=== PATIENT | female | born 1980 | race Caucasian/White ===

== ENCOUNTER → 2016-10-10 | Outpatient (CLI) | payer OTHER ==
[~2016-10-10] MED LIST: BACTRIM DS 8001 TA1 PO; CLARITIN10 MG PO; COUMADIN2 M1 PO; COUMADIN2.5 M1 PO; COUMADIN3 MG PO; FLEXERIL5 MG PO; FLONASE ALLERG9.9 ML NAS; Fioricet 325 MG1 TAB PO; LOVENOX EASYINJ1 DEV; MACROBID100 M1 PO; MOTRIN600 MG PO; MOTRIN800 MG PO; NKHM; PEN-VEE K500 MG PO; PHENERGAN25 MG RC; PLAVIX75 MG PO; PREDNISONE10 MG PO; PREDNISONE20 MG PO; PROTONIX40 MG PO; PYRIDIUM200 M1 PO; ROBITUSSIN DM 105 ML PO; TRAMADOL; VICODIN 5/500 505 MG PO; ZITHROMAX Z PA250 MG PO
[2016-10-10 12:16] LABS: BASO # 0.2 10*3/uL (0.0-0.1); EOS # 0.5 10*3/uL (0.0-0.4); EOS % 6.4 % (1.0-4.0); HEMATOCRIT 41.5 % (37.0-47.0); HEMOGLOBIN 13.8 g/dl (12.0-16.0); LYMPH # 2.2 10*3/uL (1.3-4.4); LYMPH % 30.1 % (27.0-41.0); MEAN CELL VOLUME 85.9 fl (81.0-99.0); MEAN CORPUSCULAR HGB 28.6 pg (27.0-31.0); MEAN CORPUSCULAR HGB CONC 33.3 g/dl (33.0-37.0); MEAN PLATELET VOLUME 10.9 fl (9.6-12.3); MONO # 0.5 10*3/uL (0.1-1.0); MONO % 6.2 % (3.0-9.0); NEUT # 4.1 10*3/uL (2.3-7.9); PLATELET COUNT AUTOMATED 286 10*3/uL (130-400); RED BLOOD COUNT 4.83 10*6/uL (4.10-5.10); RED CELL DISTRI WIDTH 13.7 % (0-14.5); WHITE BLOOD COUNT 7.4 10*3/uL (4.8-10.8)
[2016-10-10 12:42] LABS: ALBUMIN 3.3 gm/dl (3.1-4.5); ALKALINE PHOSPHATASE 69 U/L (45-117); BILIRUBIN, TOTAL 0.2 mg/dl (0.2-1.0); BUN 8 mg/dl (7-24); CARBON DIOXIDE 26 mmol/L (21-32); CHLORIDE 108 mmol/L (98-107); CHOLESTEROL 161 mg/dL (<200); EST GLOM FILT AFRICAN AMERICAN > 60 ml/min; GLUCOSE 84 mg/dL (65-99); HDL CHOLESTEROL 41 mg/dl (40-60); LDL CHOLESTEROL 96 mg/dL (9-159); POTASSIUM 4.2 mmol/L (3.5-5.1); SGOT/AST 12 IU/L (3-35); SGPT/ALT 18 U/L (12-78); SODIUM 140 mmol/L (136-145); TOTAL PROTEIN 6.6 gm/dL (6.4-8.2); TRIGLYCERIDES 121 mg/dl (<150); VLDL CHOLESTEROL 24 mg/dL (6-40)
== END | disposition home or self-care (01) ==
LOC: LAB 11:23
PROVIDERS: Nurse Practitioner Family
DX: R00.2 Palpitations (principal); D68.8 Other specified coagulation defects; R79.9 Abnormal finding of blood chemistry, unspecified

== ENCOUNTER 2017-02-17 15:33 | Emergency (ER) | payer OTHER ==
[~2017-02-17] VITALS: Ht 170.1 cm; Wt 72.6 kg
[2017-02-17 15:38] VITALS: BP 112/74
[2017-02-17] MEDS ORDERED: NAPROSYN500 MG PO (16:57)
== END 2017-02-17 17:03 | disposition home or self-care (01) ==
LOC: ED 15:33
DX: S40.022A Contusion of left upper arm, initial encounter (principal); K21.9 Gastro-esophageal reflux disease without esophagitis; F17.200 Nicotine dependence, unspecified, uncomplicated; Z88.5 Allergy status to narcotic agent; Z79.899 Other long term (current) drug therapy; Z88.8 Allergy status to other drugs, medicaments and biological substances; W19.XXXA Unspecified fall, initial encounter; Y93.89 Activity, other specified; Y92.89 Other specified places as the place of occurrence of the external cause; Y99.8 Other external cause status

== ENCOUNTER → 2017-09-08 | Outpatient (CLI) | payer OTHER ==
[~2017-09-08] MED LIST changes: +NAPROSYN500 MG PO
== END | disposition home or self-care (01) ==
LOC: US 14:28
DX: N93.9 Abnormal uterine and vaginal bleeding, unspecified (principal); R10.2 Pelvic and perineal pain

== ENCOUNTER 2018-01-31 16:03 | Emergency (ER) | payer OTHER ==
[~2018-01-31] VITALS: Ht 170.1 cm; Wt 68.0 kg
--- NOTE | ~2018-01-31 | EKG ---
[place], [place] ELECTROCARDIOGRAM REPORT NAME: DOLORES PELLETIER UNIT #: [id number] ROOM: DOCTOR: DAWNA DRAFT REPORT BIRTHDATE: [birth year] [facility] Test Date: 2018-01-31 Test Time: 17:04:14 Pat Name: DOLORES PELLETIER Department: Room: Gender: F Set Up Technician: SS RESP : 1980 Requested By: DOLORES FREY PA-C Order Number: [id number] Reading MD: Bernardino Watson MD Measurements Intervals [place] Rate: 92 P: 40 TX: 143 QRS: 63 QRSD: 88 T: 48 QT: 358 QTc: 443 Interpretive Statements Sinus rhythm No previous ECG available for comparison Electronically Signed On 02-01-2018 11:48:17 PST by Bernardino Watson MD CM:EKGRPT:ELECTROCARDIOGRAM REPORT [id number] DOLORES FREY PA-C EPIPHANY DRAFT REPORT DOLORES FREY PA-C
[2018-01-31 17:09] LABS: BASO # 0.2 10*3/uL (0.0-0.1); BASO % 1.4 % (0.0-1.0); EOS # 0.7 10*3/uL (0.0-0.4); EOS % 5.7 % (1.0-4.0); HEMATOCRIT 41.5 % (37.0-47.0); HEMOGLOBIN 13.2 g/dl (12.0-16.0); LYMPH # 2.7 10*3/uL (1.3-4.4); LYMPH % 22.4 % (27.0-41.0); MEAN CELL VOLUME 81.5 fl (81.0-99.0); MEAN CORPUSCULAR HGB 25.9 pg (27.0-31.0); MEAN CORPUSCULAR HGB CONC 31.8 g/dl (33.0-37.0); MONO % 7.9 % (3.0-9.0); NEUT # 7.5 10*3/uL (2.3-7.9); NEUT % 62.2 % (47.0-73.0); PLATELET COUNT AUTOMATED 329 10*3/uL (130-400); RED BLOOD COUNT 5.09 10*6/uL (4.10-5.10); RED CELL DISTRI WIDTH 16.1 % (0-14.5)
[2018-01-31 17:16] LABS: BILIRUBIN NEGATIVE (NEGATIVE); BLOOD 2+ (NEGATIVE); CLARITY SL CLOUDY (CLEAR); COLOR YELLOW (YELLOW); GLUCOSE NEGATIVE (NEGATIVE); KETONE NEGATIVE (NEGATIVE); LEUKO ESTERASE NEGATIVE (NEGATIVE); NITRITE NEGATIVE (NEGATIVE); SPECIFIC GRAVITY 1.025 (1.005-1.030); UROBILINOGEN 0.2 E.U./dl (0.2-1.0)
[2018-01-31 17:26] LABS: EPITHELIAL CELLS 16-20; WBC 0-2 wbc/hpf (0-5)
[2018-01-31 17:28] LABS: ACT PARTIAL THROMBO TIME 21.1 SECONDS (20.8-31.5); ALBUMIN 3.7 gm/dl (3.1-4.5); ALKALINE PHOSPHATASE 77 U/L (45-117); BUN 9 mg/dl (7-24); CHLORIDE 105 mmol/L (98-107); CREATININE 0.96 mg/dL (0.55-1.02); POTASSIUM 3.1 mmol/L (3.5-5.1); SGOT/AST 18 IU/L (3-35); SGPT/ALT 20 U/L (12-78); SODIUM 140 mmol/L (136-145); TOTAL PROTEIN 7.7 gm/dL (6.4-8.2)
[2018-01-31 17:29] LABS: TROPONIN I < 0.015 ng/ml (<0.045)
[2018-01-31] MEDS ORDERED: PREDNISONE10 MG PO (20:36)
[2018-01-31] MEDS ORDERED: TESSALON PERLE100 M1 PO (20:36)
[2018-01-31] MEDS ORDERED: HYCODAN/HYDROMET5 ML PO (20:36)
[2018-01-31] MEDS ORDERED: PROAIR HFA8.5 GM INH (20:36)
[2018-01-31 20:37] VITALS: BP 112/53
== END 2018-01-31 20:40 | disposition home or self-care (01) ==
LOC: ED 16:03
PROVIDERS: Physician Assistant
DX: B34.9 Viral infection, unspecified (principal); F17.200 Nicotine dependence, unspecified, uncomplicated; Z98.51 Tubal ligation status; Z98.890 Other specified postprocedural states; Z88.6 Allergy status to analgesic agent; Z88.5 Allergy status to narcotic agent; Z86.718 Personal history of other venous thrombosis and embolism; Z86.711 Personal history of pulmonary embolism

== ENCOUNTER 2018-07-23 14:56 | Emergency (ER) | payer OTHER ==
[~2018-07-23] VITALS: Ht 170.1 cm; Wt 63.5 kg
[~2018-07-23 14:56] MED LIST changes: +HYCODAN/HYDROMET5 ML PO; +PROAIR HFA8.5 GM INH; +TESSALON PERLE100 M1 PO
[2018-07-23 14:58] VITALS: BP 132/80
[2018-07-23 15:54] LABS: BASO # 0.2 10*3/uL (0.0-0.1); BASO % 1.8 % (0.0-1.0); EOS # 0.8 10*3/uL (0.0-0.4); HEMATOCRIT 45.5 % (37.0-47.0); HEMOGLOBIN 14.7 g/dl (12.0-16.0); LYMPH # 2.7 10*3/uL (1.3-4.4); LYMPH % 30.6 % (27.0-41.0); MEAN CELL VOLUME 86.5 fl (81.0-99.0); MEAN CORPUSCULAR HGB 27.9 pg (27.0-31.0); MEAN CORPUSCULAR HGB CONC 32.3 g/dl (33.0-37.0); MEAN PLATELET VOLUME 10.8 fl (9.6-12.3); MONO # 0.8 10*3/uL (0.1-1.0); NEUT # 4.4 10*3/uL (2.3-7.9); NEUT % 49.3 % (47.0-73.0); PLATELET COUNT AUTOMATED 285 10*3/uL (130-400); RED BLOOD COUNT 5.26 10*6/uL (4.10-5.10); RED CELL DISTRI WIDTH 13.7 % (0-14.5); WHITE BLOOD COUNT 8.9 10*3/uL (4.8-10.8)
[2018-07-23 16:09] LABS: ALBUMIN 3.8 gm/dl (3.1-4.5); ALKALINE PHOSPHATASE 75 U/L (45-117); BUN 13 mg/dl (7-24); CHLORIDE 106 mmol/L (98-107); CREATININE 0.96 mg/dL (0.55-1.02); LIPASE 87 U/L (73-393); POTASSIUM 3.6 mmol/L (3.5-5.1); SGOT/AST 13 IU/L (3-35); SGPT/ALT 22 U/L (12-78); SODIUM 139 mmol/L (136-145); TOTAL PROTEIN 7.4 gm/dL (6.4-8.2)
[2018-07-23] MEDS ORDERED: ZOFRAN4 MG PO (18:10)
== END 2018-07-23 18:13 | disposition home or self-care (01) ==
LOC: ED 14:56
PROVIDERS: Nurse Practitioner Family
DX: B27.90 Infectious mononucleosis, unspecified without complication (principal); K21.9 Gastro-esophageal reflux disease without esophagitis; Z88.6 Allergy status to analgesic agent; Z79.899 Other long term (current) drug therapy

== ENCOUNTER 2019-01-31 06:57 | Emergency (ER) | payer BC ==
[~2019-01-31] VITALS: Ht 170.1 cm; Wt 73.5 kg
[~2019-01-31 06:57] MED LIST changes: +ZOFRAN4 MG PO
[2019-01-31 06:58] VITALS: BP 127/69
[2019-01-31 07:33] LABS: BILIRUBIN NEGATIVE (NEGATIVE); BLOOD 2+ (NEGATIVE); CLARITY SL CLOUDY (CLEAR); COLOR YELLOW (YELLOW); GLUCOSE NEGATIVE (NEGATIVE); KETONE NEGATIVE (NEGATIVE); LEUKO ESTERASE NEGATIVE (NEGATIVE); NITRITE POSITIVE (NEGATIVE); PH 6.5 (5.0-9.0); SPECIFIC GRAVITY 1.015 (1.005-1.030)
[2019-01-31 07:50] LABS: BASO # 0.1 10*3/uL (0.0-0.1); BASO % 1.8 % (0.0-1.0); EOS # 0.5 10*3/uL (0.0-0.4); EOS % 7.7 % (1.0-4.0); HEMATOCRIT 42.1 % (37.0-47.0); HEMOGLOBIN 13.9 g/dl (12.0-16.0); LYMPH # 1.6 10*3/uL (1.3-4.4); LYMPH % 24.5 % (27.0-41.0); MEAN CORPUSCULAR HGB 29.7 pg (27.0-31.0); MONO # 0.5 10*3/uL (0.1-1.0); MONO % 7.7 % (3.0-9.0); NEUT # 3.8 10*3/uL (2.3-7.9); PLATELET COUNT AUTOMATED 262 10*3/uL (130-400); RED BLOOD COUNT 4.68 10*6/uL (4.10-5.10); RED CELL DISTRI WIDTH 13.2 % (0-14.5); WHITE BLOOD COUNT 6.5 10*3/uL (4.8-10.8)
[2019-01-31 07:52] LABS: BACTERIA 1+; EPITHELIAL CELLS 20-30; RBC 41-50 rbc/hpf (0-2)
[2019-01-31 08:05] LABS: ALBUMIN 3.3 gm/dl (3.1-4.5); ALKALINE PHOSPHATASE 64 U/L (45-117); BUN 8 mg/dl (7-24); CHLORIDE 109 mmol/L (98-107); CREATININE 0.78 mg/dL (0.55-1.02); LIPASE 87 U/L (73-393); SGOT/AST 10 IU/L (3-35); SGPT/ALT 17 U/L (12-78); SODIUM 140 mmol/L (136-145); TOTAL PROTEIN 6.8 gm/dL (6.4-8.2)
[2019-01-31] MEDS ORDERED: CIPRO500 MG PO (08:21)
== END 2019-01-31 08:24 | disposition home or self-care (01) ==
LOC: ED 06:57
PROVIDERS: Emergency Medicine
DX: N12 Tubulo-interstitial nephritis, not specified as acute or chronic (principal); K21.9 Gastro-esophageal reflux disease without esophagitis; G43.909 Migraine, unspecified, not intractable, without status migrainosus; Z88.6 Allergy status to analgesic agent; Z86.718 Personal history of other venous thrombosis and embolism

== ENCOUNTER 2019-07-16 15:37 | Emergency (ER) | payer BC ==
[~2019-07-16] VITALS: Ht 167.6 cm; Wt 68.0 kg
[~2019-07-16 15:37] MED LIST changes: +CIPRO500 MG PO
[2019-07-16 15:40] VITALS: BP 123/91
[2019-07-16 16:19] LABS: BASO # 0.2 10*3/uL (0.0-0.1); EOS # 0.6 10*3/uL (0.0-0.4); EOS % 3.5 % (1.0-4.0); HEMATOCRIT 50.1 % (37.0-47.0); LYMPH # 2.9 10*3/uL (1.3-4.4); LYMPH % 18.4 % (27.0-41.0); MEAN CELL VOLUME 89.8 fl (81.0-99.0); MEAN CORPUSCULAR HGB 29.9 pg (27.0-31.0); MEAN CORPUSCULAR HGB CONC 33.3 g/dl (33.0-37.0); MEAN PLATELET VOLUME 10.4 fl (9.6-12.3); MONO # 1.3 10*3/uL (0.1-1.0); MONO % 8.2 % (3.0-9.0); NEUT % 68.5 % (47.0-73.0); PLATELET COUNT AUTOMATED 287 10*3/uL (130-400); RED BLOOD COUNT 5.58 10*6/uL (4.10-5.10); RED CELL DISTRI WIDTH 12.6 % (0-14.5)
[2019-07-16 16:34] LABS: ALBUMIN 3.6 gm/dl (3.1-4.5); ALKALINE PHOSPHATASE 86 U/L (45-117); BUN 10 mg/dl (7-24); CHLORIDE 108 mmol/L (98-107); CREATININE 0.95 mg/dL (0.55-1.02); POTASSIUM 3.8 mmol/L (3.5-5.1); SGOT/AST 11 IU/L (3-35); SGPT/ALT 27 U/L (12-78); SODIUM 135 mmol/L (136-145); TOTAL PROTEIN 7.9 gm/dL (6.4-8.2)
[2019-07-16] MEDS ORDERED: SEPTDS PO (17:44)
[2019-07-16] MEDS ORDERED: CEPHALEXIN500 M1 PO (17:44)
== END 2019-07-16 18:00 | disposition home or self-care (01) ==
LOC: ED 15:37
PROVIDERS: Nurse Practitioner Family
DX: L02.31 Cutaneous abscess of buttock (principal); K21.9 Gastro-esophageal reflux disease without esophagitis; G43.909 Migraine, unspecified, not intractable, without status migrainosus; Z79.899 Other long term (current) drug therapy; Z88.8 Allergy status to other drugs, medicaments and biological substances

== ENCOUNTER 2019-08-17 09:11 | Inpatient (IN) | payer BC ==
[~2019-08-17] VITALS: Ht 170.1 cm; Wt 73.5 kg
[~2019-08-17 09:11] MED LIST changes: +CEPHALEXIN500 M1 PO; +SEPTDS PO
[2019-08-17 09:16] VITALS: BP 141/79
[2019-08-17 10:35] LABS: BASO # 0.1 10*3/uL (0.0-0.1); BASO % 0.8 % (0.0-1.0); EOS # 0.4 10*3/uL (0.0-0.4); EOS % 2.5 % (1.0-4.0); HEMATOCRIT 43.6 % (37.0-47.0); LYMPH # 1.7 10*3/uL (1.3-4.4); LYMPH % 10.6 % (27.0-41.0); MEAN CELL VOLUME 89.5 fl (81.0-99.0); MEAN CORPUSCULAR HGB CONC 33.5 g/dl (33.0-37.0); MEAN PLATELET VOLUME 10.5 fl (9.6-12.3); MONO # 1.1 10*3/uL (0.1-1.0); MONO % 7.2 % (3.0-9.0); NEUT # 12.4 10*3/uL (2.3-7.9); NEUT % 78.5 % (47.0-73.0); PLATELET COUNT AUTOMATED 251 10*3/uL (130-400); RED BLOOD COUNT 4.87 10*6/uL (4.10-5.10); RED CELL DISTRI WIDTH 12.9 % (0-14.5); WHITE BLOOD COUNT 15.9 10*3/uL (4.8-10.8)
[2019-08-17 10:49] LABS: ALBUMIN 3.6 gm/dl (3.1-4.5); ALKALINE PHOSPHATASE 99 U/L (45-117); BUN 5 mg/dl (7-24); CHLORIDE 108 mmol/L (98-107); CREATININE 0.95 mg/dL (0.55-1.02); POTASSIUM 3.5 mmol/L (3.5-5.1); SGOT/AST 13 IU/L (3-35); SGPT/ALT 24 U/L (12-78); SODIUM 138 mmol/L (136-145); TOTAL PROTEIN 7.6 gm/dL (6.4-8.2)
[2019-08-17] MEDS ORDERED: TYLENOL325 M1 PO (11:57)
[2019-08-17] MEDS ORDERED: AUGMENTIN 875875 MG PO (11:57)
[2019-08-17] MEDS ORDERED: NAPROSYN500 MG PO (11:57)
[2019-08-17 12:39] VITALS: BP 127/72
[2019-08-17 13:30] VITALS: BP 122/66
--- NOTE | 2019-08-17 13:30 | NUR ---
A 38, admitted to , under the services of MYNOR Antonio DO with a diagnosis of INFECTION OF SKIN OF NECK, SEPSIS. Chief complaint is WOUND AND SKIN DRAINAGE. Patient arrived via bed from ER. Monitor applied. Initial assessment completed. Vital signs taken and recorded. MYNOR ANTONIO DO notified of admission to the unit. Orders received. See assessment for past medical history, medications and allergies. Patient and/or family oriented to unit. [facility] visitation policy reviewed. Clothing/patient valuable form completed. PAOLA MEDINA
[2019-08-17 13:53] VITALS: BP 128/66
--- NOTE | 2019-08-17 14:25 | NUR ---
PT GIVEN NORCO AT THIS TIME FOR C/O PAIN TO RIGHT NECK. WILL MONITOR FOR EFFECTIVENESS. CALL LIGHT IN REACH.
--- NOTE | 2019-08-17 15:25 | NUR ---
HENOK EFFECTIVE PER PT.
--- NOTE | 2019-08-17 15:58 | NUR ---
PT STATES THAT SHE DOES NOT TAKE ANY HOME MEDICATIONS.
[2019-08-17 16:00] VITALS: BP 128/76
--- NOTE | 2019-08-17 16:53 | NUR ---
TYLENOL GIVEN FOR HEADACHE, PER PT REQUEST. WILL MONITOR FOR EFFECTIVENESS. CALL LIGHT IN REACH.
--- NOTE | 2019-08-17 17:53 | NUR ---
TYLENOL EFFECTIVE PER PT.
--- NOTE | 2019-08-17 18:23 | NUR ---
NORCO GIVEN FOR PAIN TO THE RIGHT SIDE OF HER NECK. WILL MONITOR FOR EFFECTIVENESS. CALL LIGHT IN REACH.
--- NOTE | 2019-08-17 19:23 | NUR ---
HENOK EFFECTIVE PER PT.
[2019-08-17 20:00] VITALS: BP 127/80
--- NOTE | 2019-08-17 20:00 | NUR ---
DECADRON GIVEN PER M.D. ORDERS. PT. VOICES NO C/O AT THIS TIME. OPTIFOAM DRY & INTACT TO RIGHT SIDE OF NECK. HEP LOCK INTACT; PATENT. CALL LIGHT WITHIN REACH.
--- NOTE | 2019-08-17 22:23 | NUR ---
MEDICATED WITH NORCO FOR C/O RIGHT NECK PAIN RATED A 6/10.
--- NOTE | 2019-08-17 23:30 | NUR ---
RESTING IN BED WITH EYES CLOSED; PAIN MEDICATION EFFECTIVE.
[2019-08-18] VITALS: BP 124/71
--- NOTE | 2019-08-18 01:20 | NUR ---
PT. STATES THAT IT FEELS THOUGH THERE IS DRAINAGE FROM THE WOUND ON HER NECK. DRESSING TAKEN OFF; MINIMAL DRAINAGE. CLEANSED WITH NORMAL SALINE & NEW DRESSING APPLIED. PT. VOICES NO OTHER C/O AT THIS TIME. CALL LIGHT WITHIN REACH.
--- NOTE | 2019-08-18 05:23 | NUR ---
MEDICATED WITH NORCO FOR C/O RIGHT NECK PAIN.
[2019-08-18 06:25] LABS: MEAN CELL VOLUME 88.4 fl (81.0-99.0); MEAN CORPUSCULAR HGB 30.1 pg (27.0-31.0); MEAN PLATELET VOLUME 11.1 fl (9.6-12.3); PLATELET COUNT AUTOMATED 270 10*3/uL (130-400); RED BLOOD COUNT 4.75 10*6/uL (4.10-5.10); RED CELL DISTRI WIDTH 12.6 % (0-14.5); WHITE BLOOD COUNT 17.4 10*3/uL (4.8-10.8)
[2019-08-18 06:53] LABS: ALKALINE PHOSPHATASE 101 U/L (45-117); BUN 6 mg/dl (7-24); CHLORIDE 111 mmol/L (98-107); CHOLESTEROL 155 mg/dL (<200); CREATININE 0.82 mg/dL (0.55-1.02); HDL CHOLESTEROL 45 mg/dl (40-60); POTASSIUM 3.9 mmol/L (3.5-5.1); SGOT/AST 18 IU/L (3-35); SGPT/ALT 39 U/L (12-78); SODIUM 138 mmol/L (136-145); TOTAL PROTEIN 6.9 gm/dL (6.4-8.2)
[2019-08-18 06:58] LABS: FREE T4 1.04 ng/dl (0.76-1.46); LDL CHOLESTEROL 99 mg/dL (9-159); THYROID STIM HORMONE (HS) 0.834 uIU/ml (0.358-4.75); TRIGLYCERIDES 53 mg/dl (<150); VLDL CHOLESTEROL 11 mg/dL (6-40)
[2019-08-18 07:03] LABS: TOTAL CELLS COUNTED 100 #CELLS
[2019-08-18 07:04] LABS: PLATELET SUFFICIENCY NORMAL (NORMAL); VACUOLATION OF NEUTROPHILS SLIGHT
[2019-08-18 07:05] LABS: TOXIC GRANULATION SLIGHT
[2019-08-18 07:14] LABS: VITAMIN D, 25-HYDROXY 27.9 ng/mL (30-100)
[2019-08-18 08:00] VITALS: BP 142/85
--- NOTE | 2019-08-18 09:32 | NUR ---
PT GIVEN NORCO FOR NECK PAIN. WILL MONITOR FOR EFFECTIVENESS. CALL LIGHT IN REACH.
--- NOTE | 2019-08-18 10:32 | NUR ---
HENOK EFFECTIVE PER PT.
--- NOTE | 2019-08-18 11:13 | NUR ---
NOTIFIED RYLEE THOMPSON NP THAT PT WOULD LIKE A BISCODYL DUE TO C/O CONSTIPATION. FOOT PIECE ASSEMBLER GIVES OKAY TO PLACE ORDER.
[2019-08-18 12:00] VITALS: BP 128/65
--- NOTE | 2019-08-18 13:00 | NUR ---
CONSULT CALLED TO DR NGUYEN PER ORDERS PLACED BY RYLEE THOMPSON NP.
--- NOTE | 2019-08-18 14:35 | NUR ---
PT GIVEN NORCO FOR C/O NECK PAIN. WILL MONITOR FOR EFFECTIVENESS. CALL LIGHT IN REACH.
--- NOTE | 2019-08-18 15:04 | NUR ---
NOTIFIED PHARMACY THAT VANC TROUGH IS 6.7.
--- NOTE | 2019-08-18 15:35 | NUR ---
HENOK EFFECTIVE PER PT.
[2019-08-18 16:00] VITALS: BP 127/68
[2019-08-18 20:00] VITALS: BP 132/50
--- NOTE | 2019-08-18 20:03 | NUR ---
PT REQUESTED AND RECEIVED PO NORCO PER PRN ORDER FOR C/O PAIN IN R SIDE OF NECK RATED 7/10. WILL MONITOR EFFECTIVNESS, CALL LIGHT IN REACH.
--- NOTE | 2019-08-18 21:00 | NUR ---
EARLIER NORCO EFFECTIVE PER PT. WILL MONITOR. CALL LIGHT IN REACH.
--- NOTE | 2019-08-18 21:59 | NUR ---
IV TORADOL ADMINSITERED PER PRN ORDER FOR C/O PAIN IN R NECK RATED 5/10. WILL MONITOR EFFECTIVENESS. CALL LIGHT IN REACH.
[2019-08-19] VITALS: BP 131/81
--- NOTE | 2019-08-19 00:06 | NUR ---
IV started left hand with #22 protective cath after 0 attempts. Site prepped with Chloroprep. Sterile dressing applied. Patient tolerated procedure well. MARIANNE MORRIS
[2019-08-19 06:04] LABS: BASO # 0.1 10*3/uL (0.0-0.1); BASO % 0.6 % (0.0-1.0); EOS # 0.2 10*3/uL (0.0-0.4); EOS % 1.2 % (1.0-4.0); HEMATOCRIT 34.7 % (37.0-47.0); LYMPH # 2.6 10*3/uL (1.3-4.4); LYMPH % 21.3 % (27.0-41.0); MEAN CELL VOLUME 89.9 fl (81.0-99.0); MEAN CORPUSCULAR HGB 30.1 pg (27.0-31.0); MEAN CORPUSCULAR HGB CONC 33.4 g/dl (33.0-37.0); MEAN PLATELET VOLUME 11.1 fl (9.6-12.3); MONO # 0.7 10*3/uL (0.1-1.0); NEUT # 8.7 10*3/uL (2.3-7.9); NEUT % 70.4 % (47.0-73.0); PLATELET COUNT AUTOMATED 247 10*3/uL (130-400); RED BLOOD COUNT 3.86 10*6/uL (4.10-5.10); RED CELL DISTRI WIDTH 13.1 % (0-14.5); WHITE BLOOD COUNT 12.3 10*3/uL (4.8-10.8)
--- NOTE | 2019-08-19 06:38 | NUR ---
TORADOL GIVEN FOR NECK PAIN. WILL MONITOR.
[2019-08-19 08:00] VITALS: BP 136/64
[2019-08-19] MEDS ORDERED: CEPHALEXIN500 M1 PO (09:57)
[2019-08-19] MEDS ORDERED: SEPTDS PO (09:57)
--- NOTE | 2019-08-19 10:45 | NUR ---
PT DISCHARGED HOME AT THIS TIME. HEPLOCK REMOVED. DISCHARGE WOUND PHOTO TAKEN. BUT DECLINED WHEELCHAIR AND AMBULATED OFF THE FLOOR.
== END 2019-08-19 10:45 | disposition home or self-care (01) | DRG 872 ==
LOC: ED 09:11 → EDHOLD 12:06 → 4E 12:22
PROVIDERS: Emergency Medicine; Registered Nurse; ADMIT Family Medicine
DX: A41.9 Sepsis, unspecified organism (principal); L03.221 Cellulitis of neck; K21.9 Gastro-esophageal reflux disease without esophagitis; B96.89 Other specified bacterial agents as the cause of diseases classified elsewhere; Z87.891 Personal history of nicotine dependence; Z88.6 Allergy status to analgesic agent; Z86.718 Personal history of other venous thrombosis and embolism; Z86.711 Personal history of pulmonary embolism; Z80.8 Family history of malignant neoplasm of other organs or systems

== ENCOUNTER → 2019-10-01 | Outpatient (CLI) | payer BC ==
[~2019-10-01] MED LIST changes: +AUGMENTIN 875875 MG PO; +TYLENOL325 M1 PO
== END | disposition home or self-care (01) ==
LOC: COVID19 08:34
DX: R05 Cough (principal); R50.9 Fever, unspecified; Z20.828 Contact with and (suspected) exposure to other viral communicable diseases

== ENCOUNTER → 2019-10-10 | Outpatient (CLI) | payer BC | END | disposition home or self-care (01) | LOC: COVID19 03:42 | DX: Z03.818 Encounter for observation for suspected exposure to other biological agents ruled out (principal); R11.2 Nausea with vomiting, unspecified ==

== ENCOUNTER 2020-06-19 12:08 | Emergency (ER) | payer BC ==
[~2020-06-19] VITALS: Ht 170.1 cm; Wt 68.0 kg
[2020-06-19 12:12] VITALS: BP 136/83
[2020-06-19] MEDS ORDERED: PREDNISONE20 M1 PO (14:32)
[2020-06-19] MEDS ORDERED: NAPROSYN500 MG PO (14:32)
== END 2020-06-19 14:40 | disposition home or self-care (01) ==
LOC: ED 12:08
DX: M54.12 Radiculopathy, cervical region (principal); G43.909 Migraine, unspecified, not intractable, without status migrainosus; F17.200 Nicotine dependence, unspecified, uncomplicated; Z88.8 Allergy status to other drugs, medicaments and biological substances; Z79.899 Other long term (current) drug therapy; Z98.890 Other specified postprocedural states

== ENCOUNTER → 2020-11-19 | Outpatient (CLI) | payer BC ==
[~2020-11-19] MED LIST changes: +PREDNISONE20 M1 PO
== END | disposition home or self-care (01) ==
LOC: US 11-18 07:30
PROVIDERS: ATTEND Family Medicine
DX: R10.30 Lower abdominal pain, unspecified (principal)

== ENCOUNTER → 2020-12-15 | Outpatient (CLI) | payer BC ==
[~2020-12-15] MED LIST changes: +COLACE100 MG PO; +HYDROCODONE-AC1 EAC1 PO; +OMEPRAZOLE MAGN20 MG PO
== END | disposition home or self-care (01) ==
LOC: LAB 21:46
PROVIDERS: ATTEND Nurse Practitioner Family
DX: R19.7 Diarrhea, unspecified (principal)

== ENCOUNTER → 2020-12-22 | Day surgery (SDC) | payer BC ==
[~2020-12-22] VITALS: Ht 170.1 cm; Wt 78.0 kg
[2020-12-22 13:03] VITALS: BP 111/68
[2020-12-24 08:30] VITALS: BP 139/98
[2020-12-24 09:58] VITALS: BP 152/90
[2020-12-24 10:15] VITALS: BP 147/77
[2020-12-24 10:30] VITALS: BP 138/78
[2020-12-24 10:45] VITALS: BP 143/77
[2020-12-24 11:00] VITALS: BP 125/51
== END | disposition home or self-care (01) ==
LOC: SDC 12-21 15:00
PROVIDERS: ATTEND Surgery
DX: K80.10 Calculus of gallbladder with chronic cholecystitis without obstruction (principal); K21.9 Gastro-esophageal reflux disease without esophagitis; G43.909 Migraine, unspecified, not intractable, without status migrainosus; Z20.822 Contact with and (suspected) exposure to COVID-19; Z86.718 Personal history of other venous thrombosis and embolism; Z79.899 Other long term (current) drug therapy

== ENCOUNTER → 2021-03-01 | Day surgery (SDC) | payer BC ==
[~2021-03-01] VITALS: Ht 170.1 cm; Wt 79.4 kg
[~2021-03-01] MED LIST changes: +DICYCLOMINE HCL10 MG PO
[2021-03-01 06:48] VITALS: BP 119/58
[2021-03-01 07:53] VITALS: BP 113/53
[2021-03-01 08:08] VITALS: BP 119/74
[2021-03-01 08:23] VITALS: BP 136/78
== END | disposition home or self-care (01) ==
LOC: SDC 02-25 13:15
PROVIDERS: ATTEND Surgery
DX: K52.9 Noninfective gastroenteritis and colitis, unspecified (principal); K29.50 Unspecified chronic gastritis without bleeding; K21.9 Gastro-esophageal reflux disease without esophagitis; M54.12 Radiculopathy, cervical region; Z86.718 Personal history of other venous thrombosis and embolism; G43.909 Migraine, unspecified, not intractable, without status migrainosus; Z79.899 Other long term (current) drug therapy; Z20.822 Contact with and (suspected) exposure to COVID-19

== ENCOUNTER → 2021-10-30 | Outpatient (CLI) | payer SELFPAY ==
[2021-10-30 07:49] LABS: BASO # 0.2 10*3/uL (0.0-0.1); BASO % 2.2 % (0.0-1.0); EOS # 0.4 10*3/uL (0.0-0.4); EOS % 5.5 % (1.0-4.0); HEMATOCRIT 44.6 % (37.0-47.0); LYMPH # 2.4 10*3/uL (1.3-4.4); LYMPH % 30.1 % (27.0-41.0); MEAN CELL VOLUME 88.1 fl (81.0-99.0); MEAN CORPUSCULAR HGB CONC 34.1 g/dl (33.0-37.0); MEAN PLATELET VOLUME 10.7 fl (9.6-12.3); MONO # 0.6 10*3/uL (0.1-1.0); MONO % 8.1 % (3.0-9.0); NEUT # 4.2 10*3/uL (2.3-7.9); NEUT % 53.8 % (47.0-73.0); PLATELET COUNT AUTOMATED 287 10*3/uL (130-400); RED BLOOD COUNT 5.06 10*6/uL (4.10-5.10); RED CELL DISTRI WIDTH 12.6 % (0-14.5); WHITE BLOOD COUNT 7.8 10*3/uL (4.8-10.8)
[2021-10-30 07:50] LABS: BILIRUBIN Negative (Negative); BLOOD 1+ (Negative); CLARITY Clear (Clear); COLOR Yellow (Yellow); GLUCOSE Negative (Negative); KETONE Negative (Negative); LEUKO ESTERASE Negative (Negative); NITRITE Negative (Negative); PH 5.5 (4.5-8.0); SPECIFIC GRAVITY 1.015 (1.001-1.030); UROBILINOGEN 0.2 E.U./dl (0.0-1.0)
[2021-10-30 08:09] LABS: ALKALINE PHOSPHATASE 58 U/L (45-117); BUN 18 mg/dl (7-24); CHLORIDE 109 mmol/L (98-107); CHOLESTEROL 214 mg/dL (<200); CREATININE 0.84 mg/dL (0.55-1.02); LDL CHOLESTEROL 133 mg/dL (9-159); LIPASE 127 U/L (73-393); POTASSIUM 4.6 mmol/L (3.5-5.1); SGOT/AST 11 IU/L (3-35); SGPT/ALT 20 U/L (12-78); SODIUM 138 mmol/L (136-145); TRIGLYCERIDES 144 mg/dl (<150)
[2021-10-30 08:43] LABS: BACTERIA TRACE; EPITHELIAL CELLS 31-40
== END ==
LOC: LAB 07:00
PROVIDERS: ATTEND Nurse Practitioner Family
DX: R10.84 Generalized abdominal pain (principal); K59.00 Constipation, unspecified; Z90.49 Acquired absence of other specified parts of digestive tract

== ENCOUNTER → 2021-12-13 | Outpatient (CLI) | payer BC | END | disposition home or self-care (01) | LOC: NM 02:46 | PROVIDERS: ATTEND Nurse Practitioner | DX: K21.9 Gastro-esophageal reflux disease without esophagitis (principal) ==